=== PATIENT | female | born 1945 | race Caucasian/White ===

== ENCOUNTER 2017-02-10 07:38 | Inpatient (IN) | payer OTHER ==
[2017-02-08 12:28] LABS: BASOPHILS 0.4 %; BASOPHILS ABSOLUTE 0.03 10/3/uL (0.0-0.16); EOSINOPHILS 5.7 %; EOSINOPHILS ABSOLUTE 0.44 10/3/uL (0.0-0.53); HEMATOCRIT 40.4 % (36.0-48.0); HEMOGLOBIN 13.4 g/dL (12.0-16.0); IMMATURE GRANULOCYTES 0.1 %; IMMATURE GRANULOCYTES ABSOLUTE 0.01 10/3/uL (0.0-0.11); LYMPHOCYTES 30.9 %; LYMPHOCYTES ABSOLUTE 2.37 10/3/uL (0.67-4.30); MANUAL DIFF NO %; MEAN CORPUS HGB CONC 33.2 g/dL (32.0-36.0); MEAN CORPUSCULAR HEMOGLOB 28.8 pg (26.0-34.0); MEAN CORPUSCULAR VOLUME 86.7 fL (80-100); MEAN PLATELET VOLUME 10.4 fL (9.2-13.0); MONOCYTES 6.9 %; MONOCYTES ABSOLUTE 0.53 10/3/uL (0.21-1.20); NEUTROPHILS ABSOLUTE 4.28 10/3/uL (2.02-8.40); PLATELET COUNT 196 10/3/uL (150-400); RBC DISTRIBUTION WIDTH 15.2 % (12.0-16.0); RED CELL COUNT 4.66 10/6/uL (4.0-5.6); WHITE BLOOD CELLS 7.7 10/3/uL (4.5-10.5)
[2017-02-08 12:47] LABS: ALBUMIN 3.6 G/DL (3.5-5.0); ALKALINE PHOSPHATASE 94 U/L (45-117); BUN (BLOOD UREA NITROGEN) 18 MG/DL (6-23); CHLORIDE, SERUM 110 MMOL/L (96-112); CO2 (CARBON DIOXIDE) 28 MMOL/L (24-34); GFR AFRICAN AMERICAN 100 ML/MIN (>=60); GFR NON AFRICAN AMERICAN 87 ML/MIN (>=60); GLOBULIN 3.6 G/DL (2.5-4.1); POTASSIUM, SERUM 4.4 MMOL/L (3.5-5.3); SGOT(AST) 25 U/L (5-40); SGPT(ALT) 24 U/L (5-65); SODIUM, SERUM 144 MMOL/L (135-148); TOTAL BILIRUBIN 0.7 MG/DL (0-1.2); TOTAL PROTEIN 7.2 G/DL (6.0-8.5)
[2017-02-08 12:50] LABS: CALCIUM, SERUM 9.9 MG/DL (8.5-10.4); GLUCOSE, SERUM 119 MG/DL (60-99)
--- NOTE | ~2017-02-10 | OP ---
Record Of Operation [facility] [address] [place]. [address] NAME: OBIE NOGUEIRA : 43 STATUS : ADM IN [facility]#: [id number] AGE: 71 ADM/REG DATE : 02/10/17 MR#: [id number] REPORT SERV DATE: 02/11/17 DICTATED BY: RADHA ECRVANTES III DATE: 02/10/17 REPORT STATUS : Draft TRANSCRIBED BY: MODL DATE: 02/10/17 DATE OF PROCEDURE: 02/10/2017 PREOPERATIVE DIAGNOSES: History of sigmoid colon cancer with previous history of emergent sigmoid colectomy and colostomy with Shon's pouch, with postoperative adjuvant chemotherapy, obesity, diabetes mellitus, chronic anterior abdominal wall wound, hypertension, and history of cerebrovascular accident in the past. POSTOPERATIVE DIAGNOSES: History of sigmoid colon cancer with previous history of emergent sigmoid colectomy and colostomy with Shon's pouch, with postoperative adjuvant chemotherapy, obesity, diabetes mellitus, chronic anterior abdominal wall wound, hypertension, and history of cerebrovascular accident in the past. PROCEDURE: Laparotomy, resection of the colostomy stoma with colorectal anastomosis, extensive lysis of adhesions, debridement and excision of chronic anterior abdominal wall wound sinus tract, sigmoidoscopy. SURGEON: Radha Cervantes M.D. ANESTHESIA: General with intubation. COMPLICATIONS: None. ESTIMATED BLOOD LOSS: 50 mL. SPECIMENS: Colostomy stoma consisting of distal portion of left colon. DRAINS: Nithin-Cardenas in abdominal cavity, Mantoloking in subcutaneous tissue. LAP AND SPONGE COUNT: Correct x3. BRIEF HISTORY: This 71-year-old female who is about one year status post emergent sigmoid colectomy with colostomy and Shon's pouch for an obstructing perforated cancer of the sigmoid colon. The patient had a locally advanced cancer at that time. Her surgery was very difficult at that time secondary to invasion of the tumor into the abdominal wall due to severe inflammatory changes from the perforation. The patient had recovered from surgery and had undergone adjuvant chemotherapy. She now wished to have her colostomy closed. She had a chronic draining anterior abdominal wall wound, which she wished to have debrided or resected at the time. The patient is extremely obese with multiple comorbid risk factors and based on the previous surgical history, it was explained to the patient that this would be a difficult procedure with high risk for morbidity and mortality. The patient understands and wished to proceed with surgery. The procedure risks, benefits, and alternatives, including but not limited to, the risk for bleeding, infection, enterotomy, injury to abdominal structure, postop small bowel obstruction, ileus, incisional hernia, dehiscence, anastomotic leak, requiring reoperation with colostomy, ureteral injury, and unforeseen complications including deep venous thrombosis, pulmonary embolus, myocardial Record Of Operation [address] [place]. [address] NAME: OBIE NOGUEIRA : 43 STATUS : ADM IN [facility]#: [id number] AGE: 71 ADM/REG DATE : 02/10/17 MR#: [id number] REPORT SERV DATE: 02/11/17 DICTATED BY: RADHA CERVANTES III DATE: 02/10/17 REPORT STATUS : Draft TRANSCRIBED BY: ROMERO DATE: 02/10/17 infarction, stroke, pneumonia, and , were fully and completely explained to the patient and her family at length on several occasions prior to surgery. Their questions were answered. They understood the risks and agreed to the surgery as planned. DESCRIPTION OF PROCEDURE: After being properly identified and after discussing risks of surgery with the patient and family again in the preoperative area, and after an appropriate bowel preparation at home, the patient was taken to the operating room and placed in the supine position on the operating room table. General anesthesia was administered, and she was intubated without difficulty. A Kunz catheter was inserted. Her legs were placed in stirrups. The abdomen and perineum were prepped and draped sterilely in the usual fashion after a 2-0 silk pursestring was placed around the stoma. After an appropriate "time-out" per JCAHO standards, a midline incision was made from just below the umbilicus towards the pubis. The incision was continued through the subcutaneous tissue. There was extensive scarring in the area. The patient had a chronic sinus tract in the anterior abdominal wall. This sinus tract extended down to the fascia, but it did not involve the fascia and did not penetrate the fascia. This sinus tract consisting of granulation tissue was resected. It should be noted that the patient was extremely obese and abdominal wall was extremely thick. The incision was continued through the fascia. The abdominal cavity was carefully entered. There were extremely dense adhesions between the omentum and multiple loops of small bowel on the underside of the abdominal wall and the pelvis. A considerable amount of time was spent on dividing these adhesions so as to be able to expose the rectal stump. In particular, there was a loop of small bowel which was densely adherent to the pelvis and this was carefully freed. Using sharp dissection, we identified the rectal stump. This was mobilized using sharp dissection. After adequate mobilization, we turned our attention to the colostomy stoma. A circular incision was made around this. Using sharp dissection, the colostomy stoma was excised from the abdominal wall. This was extremely difficult secondary to the thickness of the patient's abdominal wall. The peritoneal flexion to the left colon was divided along the line of Toldt, and the colon mobilized medially. We divided the distal end of the left colon, which had been in the abdominal wall. This was sent for permanent pathology. At this time, a 2-0 Prolene pursestring was placed around and divided the end of the left colon. Sizers were placed into the lumen of the colon, and it was determined that the #27 stapler will be the appropriate size. The anvil was placed into the lumen of the colon, and a pursestring was secured. At this time, a rigid sigmoidoscopy was performed. Air was passed through the sigmoidoscope into the rectal stump, and the rectal stump was noted to be watertight with no evidence for leakage or extravasation. At this time, we attempted to pass the EEA stapler up to the rectal stump. There was an acute angulation of the rectum and after several attempts, we felt we could not safely pass the stapler to perform the anastomosis. Record Of Operation [facility] [address] [facility] [place]. [address] NAME: JUAN RAMON NOGUEIRAYCE Charlie : 43 STATUS : ADM IN [facility]#: [id number] AGE: 71 ADM/REG DATE : 02/10/17 MR#: [id number] REPORT SERV DATE: 02/11/17 DICTATED BY: RADHA CERVANTES III DATE: 02/10/17 REPORT STATUS : Draft TRANSCRIBED BY: MODL DATE: 02/10/17 For this reason, we elected to perform a [id number]-pp-rbup anastomosis. This was performed by aligning the antimesenteric border of the left colon with antimesenteric border proximal to the rectum, using 3-0 silk sutures. A small opening was then made in the antimesenteric border of the proximal colon and the rectum. A OLY stapler was placed through this and fired. The defect created by the stapler was then closed in two layers, using a running 3-0 chromic suture on the inner layer, and interrupted 3-0 silk sutures on the outer anterior layer. Upon completion of this, the anastomosis was widely patent to palpation. It was not twisted or kinked in anyway and was not under any tension. Sigmoidoscopy was again performed, and air was passed through the anastomosis with saline in the pelvis. Air was noted to pass easily through the anastomosis with no evidence for leakage or extravasation of air bubbles. Hemostasis was assured. The anastomosis again was patent to palpation and not twisted or kinked in any way and not under any tension. Hemostasis was assured in all areas. A Nithin-Cardenas drain was brought through a separate stab wound to the right incision and placed in the pelvis. The fascia of both incision was closed with a running looped #1 PDS suture. This subcutaneous tissue was closed with a running 3-0 chromic suture over a Petra drain which was brought out through the inferior aspect of the incision and the lateral aspect of the lateral incision. The skin was closed with skin tigre. Dressings were applied, anesthesia was reversed, and the patient was taken to the recovery room in stable condition. She tolerated the procedure well. Her family was informed of results of surgery. The patient will remain in the hospital for postoperative care. This procedure was extremely difficult secondary to the patient's large size and dense adhesions. This extended the length of procedure by 100%, and for this reason, modifier 22 was added to the procedure code. RHJ/MODL Radha Cervantes III, M.D. / [id number]
--- NOTE | ~2017-02-10 | DS ---
Discharge Summary [facility] [address] [facility] [place]. [address] NAME: OBIE NOGUEIRA : 43 STATUS : DIS IN PAT#: [id number] AGE: 71 ADM/REG DATE : 02/10/17 MR#: [id number] REPORT SERV DATE: 02/28/17 DICTATED BY: RADHA CERVANTES III DATE: 02/25/17 REPORT STATUS : Draft TRANSCRIBED BY: ROMERO DATE: 02/25/17 Data Collection from hospitalization DISCHARGE DIAGNOSES: 1. History of sigmoid colon cancer with previous history of emergent sigmoid colectomy and colostomy with Srivastava's pouch and postoperative adjuvant chemotherapy, status post laparotomy; resection of the colostomy stoma with colorectal anastomosis; extensive lysis of adhesions; debridement and excision of chronic anterior abdominal wall wound sinus tract and sigmoidoscopy. 2. Diabetes mellitus. 3. Hypertension. 4. Obesity. 5. History of cerebrovascular accident. 6. Arthritis. 7. History of thyroid disease. CONSULTATIONS: None. PROCEDURES PERFORMED: Laparotomy resection of the colostomy stoma with colorectal anastomosis, extensive lysis of adhesions, debridement and excision of chronic anterior abdominal wall wound sinus tract, sigmoidoscopy on 02/10/2017. PATHOLOGY: Colonic cutaneous junction stoma - benign mucosa with focal superficial erosion, [id number] mixed inflammation at the junction, proximal mucosa within normal limits. No mucinous adenocarcinoma. MEDICATIONS: Zyloprim 100 mg every morning, Norvasc 5 mg every morning, aspirin 81 mg every morning, vitamin D 1000 units daily, Colace 100 mg daily, Toujeo 63 units subcutaneously every morning, Synthroid 75 mcg every morning, Prinivil 40 mg every morning, Fortamet 500 mg twice a day, Lopressor 50 mg twice a day, Percocet 7.5/325 one tablet three times a day as needed, iron 72 mg daily, and Pro-Stat one ounce daily. CONDITION AT DISCHARGE: Stable. DISPOSITION: The patient was discharged home to be followed by home health care on an 1800- calorie diabetic soft diet with activities as instructed. She would follow up with me two weeks following discharge. HOSPITAL COURSE: This is a 71-year-old female who was about one year status post emergent sigmoid colectomy with colostomy and Shon's pouch for an obstructing perforated cancer of the sigmoid colon. The patient had a locally advanced cancer at that time. Her surgery was very difficult at that time secondary to invasion of the tumor into the abdominal wall due to severe inflammatory changes from the perforation. She has recovered from surgery and had undergone adjuvant chemotherapy. She now wanted to have her colostomy closed. She had chronic draining anterior abdominal wall wound, which she wished to have debrided or resected at that time. She is extremely obese with multiple comorbid risk factors and based on the previous surgical history, it was explained to the patient that this would be a difficult procedure with a high risk for morbidity and mortality. She understood and wanted Discharge Summary [facility] [address] [place]. [address] NAME: OBIE NOGUEIRA : 43 STATUS : DIS IN PAT#: [id number] AGE: 71 ADM/REG DATE : 02/10/17 MR#: [id number] REPORT SERV DATE: 02/28/17 DICTATED BY: RADHA CERVANTES III DATE: 02/25/17 REPORT STATUS : Draft TRANSCRIBED BY: ROMERO DATE: 02/25/17 to proceed with surgery. Treatment options were discussed and it was elected to proceed with surgical intervention. She was admitted to the hospital at this time for further evaluation and treatment. Upon admission, she was taken to the operating room where she underwent the above-mentioned procedure. She tolerated this well, and there were no complications. On postop day #1, she had no new complaints except for being thirsty. Her abdomen was soft. Clear liquids were started. It was felt that she was likely to have a prolonged ileus with slow recovery. She was evaluated by Physical Therapy. On 02/12/2017, she had no new complaints. She was alert and comfortable. She was progressing well. Clear liquids were continued. Over the next couple of days, she continued to progress. She was beginning to tolerate full liquids. She was passing some gas per rectum. Discharge planning was performed. The SENIOR SUPPORT ANALYST was discontinued. On 02/16/2017, the patient felt better and wanted to go home. She was eating and ambulating well. She was passing stool and gas. Discharge instructions were given. Due to her improved and stable condition, she was discharged home to be followed by home health care with the above-stated instructions. Information collected by: Sarah Toledo I submit the above information as my discharge summary. JAMAAL/ROMERO Radha Cervantes III, M.D. / [id number] CC: Ileana Marlow III, MD
--- NOTE | ~2017-02-10 | PREOPHP ---
PreOp History and Physical [facility] [id number] [place]. [address] NAME: OBIE NOGUEIRA : 43 STATUS : PRE IN PAT#: [id number] AGE: 71 ADM/REG DATE : MR#: [id number] REPORT SERV DATE: 02/10/17 DICTATED BY: RADHA CERVANTES III DATE: 02/01/17 REPORT STATUS : Draft TRANSCRIBED BY: MODL DATE: 02/01/17 HISTORY OF PRESENT ILLNESS: This is a 71-year-old female, who comes to the operating room for resection and closure of her colostomy and wound debridement. The patient has a history of colon cancer. She is status post emergent surgery performed on 12/26/2015 for an obstructing cancer of the sigmoid colon. At that time, she had a large sigmoid colon cancer with invasion into the abdominal wall. She underwent colectomy with colostomy and Shon's pouch. The patient has completed chemotherapy and is considered to be in remission regarding her disease. She comes now for elective closure of her colostomy. The patient has a chronic anterior abdominal wall wound. This wound will be debrided and possibly closed at the time of surgery. Alternatively, wound VAC may be placed. PAST MEDICAL HISTORY: 1. History of T3 N1b poorly differentiated mucinous adenocarcinoma, associated with obstruction and 3/13 positive lymph nodes, status post sigmoid colectomy with colostomy performed approximately one year ago as above. 2. Arthritis. 3. Diabetes mellitus. 4. Hypertension. 5. Cerebrovascular accident in the past. 6. Obesity. 7. History of thyroid disease. 8. History of chronic anterior abdominal wall wound for which the patient has been receiving wound care in the [facility]. SOCIAL HISTORY: The patient is and retired. She has no history of tobacco use. She has no history of alcohol use. REVIEW OF SYSTEMS: The patient has a history of previous intracranial hemorrhage. The patient has a history of fibromyalgia. PAST SURGICAL HISTORY: Includes cholecystectomy, appendectomy, and colon surgery as above. MEDICATIONS: Allopurinol, amlodipine, aspirin, calcium, levothyroxine, lisinopril, insulin, fludrocortisone, cholecalciferol, omeprazole, metoprolol, lactulose. PHYSICAL EXAMINATION: GENERAL: Reveals a very obese elderly female, in no acute distress. She is alert and oriented x3. HEENT: Unremarkable. Cranial nerves II through XII were normal. LUNGS: Clear. CARDIAC: Normal. ABDOMEN: Soft, nontender. The patient has a colostomy in the left lower quadrant. She has a chronic wound in the anterior abdominal wall, which extends in the midline, down to the fascia level. EXTREMITIES: Normal. PreOp History and Physical [facility] [address] [place]. [address] NAME: OBIE NOGUEIRA : 43 STATUS : PRE IN PAT#: [id number] AGE: 71 ADM/REG DATE : MR#: [id number] REPORT SERV DATE: 02/10/17 DICTATED BY: RADHA CERVANTES III DATE: 02/01/17 REPORT STATUS : Draft TRANSCRIBED BY: ROMERO DATE: 02/01/17 ASSESSMENT: A 71-year-old female with: 1. History of previous sigmoid colon cancer, status post emergent sigmoid colectomy with colostomy and Shon's pouch performed on 01/15/2016 emergently for an obstructing cancer of the colon. The patient is considered to be in remission regarding her cancer at this time. This cancer appeared to involve the pelvic sidewall and was a stage IIIB cancer. 2. Obesity. 3. Insulin-dependent diabetes mellitus. 4. Hypothyroidism. 5. History of cerebrovascular accident in the past. 6. Hypertension. 7. Osteoarthritis. 8. Fibromyalgia. PLAN: The patient comes to the operating room now for resection and closure of her colostomy with debridement of the anterior abdominal wall wound and possible closure versus wound VAC placement. The fact that this is a major operation with risk for major morbidity and mortality has been explained. The expected length of recovery has been explained. The procedure risks, benefits, and alternatives, including but not limited to the risk for bleeding, infection, enterotomy, injury to any abdominal structure, postop small bowel obstruction, ileus, incisional hernia, dehiscence, anastomotic leak, requiring reoperation with replacement of the colostomy, possible need for temporary ileostomy if we concerned about the anastomosis, recurrence of the wound, possible need for chronic wound care, ureteral injury, and unforeseen complications including deep venous thrombosis, pulmonary embolus, myocardial infarction, stroke, pneumonia, and , have been fully and completely explained to the patient and her family at length prior to surgery. The fact that this is a major operation with risk for major morbidity and mortality has been explained. Expected length of recovery has been explained. The option of nonoperative management has been offered to the patient, but declined. The patient's questions have been answered. She clearly understands the risks and agrees to the surgery as planned. RAMIRO/ROMERO Radha Cervantes III, M.D. / [id number]
[~2017-02-10 07:38] MED LIST: ASAB PO; CIP5 PO; CYMBALTA30 PO; DIABET2.5 PO; DSS PO; FIBERCON PO; FLAG500TAB PO; FLORASTOR250 MG PO; FORTAMET500 MG PO; HUMALOGMIX SC; HUMAMIXPEN SC; IRON PO; LEVOTHYROXIN75 MCG PO; LISINOPRIL40 MG PO; LOP50 PO; METAMUCIL PO; MICONAZOLE2 % V; NORV5 PO; PCET PO; PRILOSEC OTC20 MG PO; PRIN20 PO; PRO-STAT PO; SYN075 PO; TOPXL50 PO; TOUJEO SC; VITAMIN D1000 UNI1 PO; VITAMIN D400 UNI1 PO; Z100 PO; ZYRTEC ALLGY10 MG PO
[2017-02-10 08:51] LABS: INTERNATIONAL NORMAL RATI 1.3 UNITS (-); PARTIAL THROMBO TIME 30.5 SEC (22.5-37.2); PROTIME (NOT ORD) 15.6 SEC (12.0-14.5)
[2017-02-11 07:23] LABS: HEMATOCRIT 37.8 % (36.0-48.0); HEMOGLOBIN 12.9 g/dL (12.0-16.0); MEAN CORPUS HGB CONC 34.1 g/dL (32.0-36.0); MEAN CORPUSCULAR HEMOGLOB 29.2 pg (26.0-34.0); MEAN CORPUSCULAR VOLUME 85.5 fL (80-100); MEAN PLATELET VOLUME 10.2 fL (9.2-13.0); PLATELET COUNT 198 10/3/uL (150-400); RBC DISTRIBUTION WIDTH 15.6 % (12.0-16.0); RED CELL COUNT 4.42 10/6/uL (4.0-5.6)
[2017-02-11 07:26] LABS: MANUAL DIFF YES %; WHITE BLOOD CELLS 14.9 10/3/uL (4.5-10.5)
[2017-02-11 07:27] LABS: CHLORIDE, SERUM 111 MMOL/L (96-112); POTASSIUM, SERUM 4.2 MMOL/L (3.5-5.3); SODIUM, SERUM 141 MMOL/L (135-148)
[2017-02-11 07:29] LABS: BUN (BLOOD UREA NITROGEN) 12 MG/DL (6-23); CALCIUM, SERUM 8.6 MG/DL (8.5-10.4); CO2 (CARBON DIOXIDE) 24 MMOL/L (24-34)
[2017-02-11 07:32] LABS: GFR AFRICAN AMERICAN 85 ML/MIN (>=60); GFR NON AFRICAN AMERICAN 74 ML/MIN (>=60); GLUCOSE, SERUM 122 MG/DL (60-99)
[2017-02-11 07:44] LABS: BAND NEUTROPHILS 1 %; LYMPHOCYTES 10 %; LYMPHOCYTES ABSOLUTE (CALC) 1.49 10/3/uL (0.67-4.30); MONOCYTES 6 %; MONOCYTES ABSOLUTE (CALC) 0.89 10/3/uL (0.21-1.20); NEUTROPHILS ABSOLUTE (CALC) 12.52 10/3/uL (2.02-8.40); PLATELET ESTIMATE ADQ (ADEQUATE); RBC MORPHOLOGY NORM (NORMAL); SEGMENTED NEUTROPHIL (0) 83 %; TOTAL NUCLEATED CELLS 100
[2017-02-12 05:31] LABS: BASOPHILS 0.5 %; BASOPHILS ABSOLUTE 0.07 10/3/uL (0.0-0.16); EOSINOPHILS ABSOLUTE 0.64 10/3/uL (0.0-0.53); HEMATOCRIT 36.4 % (36.0-48.0); HEMOGLOBIN 11.8 g/dL (12.0-16.0); IMMATURE GRANULOCYTES 0.4 %; IMMATURE GRANULOCYTES ABSOLUTE 0.05 10/3/uL (0.0-0.11); LYMPHOCYTES 19.9 %; LYMPHOCYTES ABSOLUTE 2.54 10/3/uL (0.67-4.30); MEAN CORPUS HGB CONC 32.4 g/dL (32.0-36.0); MEAN CORPUSCULAR HEMOGLOB 28.3 pg (26.0-34.0); MEAN CORPUSCULAR VOLUME 87.3 fL (80-100); MEAN PLATELET VOLUME 10.7 fL (9.2-13.0); MONOCYTES 10.3 %; MONOCYTES ABSOLUTE 1.32 10/3/uL (0.21-1.20); NEUTROPHILS 63.9 %; NEUTROPHILS ABSOLUTE 8.14 10/3/uL (2.02-8.40); PLATELET COUNT 163 10/3/uL (150-400); RBC DISTRIBUTION WIDTH 15.6 % (12.0-16.0); RED CELL COUNT 4.17 10/6/uL (4.0-5.6); WHITE BLOOD CELLS 12.8 10/3/uL (4.5-10.5)
[2017-02-12 05:32] LABS: MANUAL DIFF NO %
[2017-02-12 05:40] LABS: BUN (BLOOD UREA NITROGEN) 9 MG/DL (6-23); CALCIUM, SERUM 8.3 MG/DL (8.5-10.4); CHLORIDE, SERUM 110 MMOL/L (96-112); CO2 (CARBON DIOXIDE) 24 MMOL/L (24-34); CREATININE 0.71 MG/DL (0.55-1.02); GFR AFRICAN AMERICAN 99 ML/MIN (>=60); GFR NON AFRICAN AMERICAN 85 ML/MIN (>=60); GLUCOSE, SERUM 121 MG/DL (60-99); SODIUM, SERUM 140 MMOL/L (135-148)
[2017-02-12 05:42] LABS: POTASSIUM, SERUM 4.7 MMOL/L (3.5-5.3)
[2017-02-13 05:08] LABS: BASOPHILS 0.3 %; BASOPHILS ABSOLUTE 0.03 10/3/uL (0.0-0.16); EOSINOPHILS 8.2 %; EOSINOPHILS ABSOLUTE 0.74 10/3/uL (0.0-0.53); HEMATOCRIT 36.2 % (36.0-48.0); IMMATURE GRANULOCYTES 0.2 %; IMMATURE GRANULOCYTES ABSOLUTE 0.02 10/3/uL (0.0-0.11); LYMPHOCYTES 23.7 %; LYMPHOCYTES ABSOLUTE 2.15 10/3/uL (0.67-4.30); MEAN CORPUS HGB CONC 33.1 g/dL (32.0-36.0); MEAN CORPUSCULAR HEMOGLOB 28.6 pg (26.0-34.0); MEAN CORPUSCULAR VOLUME 86.2 fL (80-100); MEAN PLATELET VOLUME 10.3 fL (9.2-13.0); MONOCYTES 8.8 %; NEUTROPHILS 58.8 %; NEUTROPHILS ABSOLUTE 5.33 10/3/uL (2.02-8.40); PLATELET COUNT 153 10/3/uL (150-400); RBC DISTRIBUTION WIDTH 15.8 % (12.0-16.0); WHITE BLOOD CELLS 9.1 10/3/uL (4.5-10.5)
[2017-02-13 05:10] LABS: MANUAL DIFF NO %
[2017-02-13 05:16] LABS: BUN (BLOOD UREA NITROGEN) 6 MG/DL (6-23); CALCIUM, SERUM 8.8 MG/DL (8.5-10.4); CHLORIDE, SERUM 110 MMOL/L (96-112); CO2 (CARBON DIOXIDE) 26 MMOL/L (24-34); CREATININE 0.63 MG/DL (0.55-1.02); GFR AFRICAN AMERICAN 104 ML/MIN (>=60); GFR NON AFRICAN AMERICAN 90 ML/MIN (>=60); SODIUM, SERUM 141 MMOL/L (135-148)
[2017-02-13 05:17] LABS: GLUCOSE, SERUM 165 MG/DL (60-99)
[2017-02-14 07:19] LABS: BASOPHILS 0.3 %; BASOPHILS ABSOLUTE 0.02 10/3/uL (0.0-0.16); EOSINOPHILS 9.4 %; EOSINOPHILS ABSOLUTE 0.58 10/3/uL (0.0-0.53); HEMATOCRIT 35.3 % (36.0-48.0); HEMOGLOBIN 11.7 g/dL (12.0-16.0); IMMATURE GRANULOCYTES 0.2 %; IMMATURE GRANULOCYTES ABSOLUTE 0.01 10/3/uL (0.0-0.11); LYMPHOCYTES 23.7 %; LYMPHOCYTES ABSOLUTE 1.47 10/3/uL (0.67-4.30); MEAN CORPUS HGB CONC 33.1 g/dL (32.0-36.0); MEAN CORPUSCULAR HEMOGLOB 28.6 pg (26.0-34.0); MEAN CORPUSCULAR VOLUME 86.3 fL (80-100); MEAN PLATELET VOLUME 9.7 fL (9.2-13.0); MONOCYTES 8.4 %; MONOCYTES ABSOLUTE 0.52 10/3/uL (0.21-1.20); PLATELET COUNT 137 10/3/uL (150-400); RBC DISTRIBUTION WIDTH 15.4 % (12.0-16.0); RED CELL COUNT 4.09 10/6/uL (4.0-5.6); WHITE BLOOD CELLS 6.2 10/3/uL (4.5-10.5)
[2017-02-14 07:20] LABS: MANUAL DIFF NO %
[2017-02-14 07:31] LABS: BUN (BLOOD UREA NITROGEN) 5 MG/DL (6-23); CALCIUM, SERUM 8.6 MG/DL (8.5-10.4); CHLORIDE, SERUM 111 MMOL/L (96-112); CO2 (CARBON DIOXIDE) 27 MMOL/L (24-34); CREATININE 0.64 MG/DL (0.55-1.02); GFR AFRICAN AMERICAN 103 ML/MIN (>=60); GFR NON AFRICAN AMERICAN 89 ML/MIN (>=60); GLUCOSE, SERUM 205 MG/DL (60-99); POTASSIUM, SERUM 4.1 MMOL/L (3.5-5.3); SODIUM, SERUM 143 MMOL/L (135-148)
[2017-02-15 06:42] LABS: BASOPHILS 0.5 %; BASOPHILS ABSOLUTE 0.03 10/3/uL (0.0-0.16); BUN (BLOOD UREA NITROGEN) 5 MG/DL (6-23); CALCIUM, SERUM 8.7 MG/DL (8.5-10.4); CHLORIDE, SERUM 109 MMOL/L (96-112); CO2 (CARBON DIOXIDE) 27 MMOL/L (24-34); CREATININE 0.62 MG/DL (0.55-1.02); EOSINOPHILS 8.8 %; EOSINOPHILS ABSOLUTE 0.58 10/3/uL (0.0-0.53); GFR AFRICAN AMERICAN 104 ML/MIN (>=60); GFR NON AFRICAN AMERICAN 90 ML/MIN (>=60); HEMATOCRIT 34.9 % (36.0-48.0); HEMOGLOBIN 11.4 g/dL (12.0-16.0); IMMATURE GRANULOCYTES 0.2 %; IMMATURE GRANULOCYTES ABSOLUTE 0.01 10/3/uL (0.0-0.11); LYMPHOCYTES 28.1 %; LYMPHOCYTES ABSOLUTE 1.85 10/3/uL (0.67-4.30); MANUAL DIFF NO %; MEAN CORPUS HGB CONC 32.7 g/dL (32.0-36.0); MEAN CORPUSCULAR HEMOGLOB 28.4 pg (26.0-34.0); MEAN CORPUSCULAR VOLUME 86.8 fL (80-100); MEAN PLATELET VOLUME 9.9 fL (9.2-13.0); MONOCYTES ABSOLUTE 0.59 10/3/uL (0.21-1.20); NEUTROPHILS 53.4 %; NEUTROPHILS ABSOLUTE 3.53 10/3/uL (2.02-8.40); PLATELET COUNT 162 10/3/uL (150-400); POTASSIUM, SERUM 4.1 MMOL/L (3.5-5.3); RBC DISTRIBUTION WIDTH 15.5 % (12.0-16.0); RED CELL COUNT 4.02 10/6/uL (4.0-5.6); SODIUM, SERUM 143 MMOL/L (135-148); WHITE BLOOD CELLS 6.6 10/3/uL (4.5-10.5)
[2017-02-15 06:43] LABS: GLUCOSE, SERUM 155 MG/DL (60-99)
[2017-02-16 06:26] LABS: BASOPHILS 0.3 %; BASOPHILS ABSOLUTE 0.02 10/3/uL (0.0-0.16); EOSINOPHILS 7.7 %; EOSINOPHILS ABSOLUTE 0.49 10/3/uL (0.0-0.53); HEMATOCRIT 33.5 % (36.0-48.0); IMMATURE GRANULOCYTES 0.2 %; IMMATURE GRANULOCYTES ABSOLUTE 0.01 10/3/uL (0.0-0.11); LYMPHOCYTES 23.8 %; LYMPHOCYTES ABSOLUTE 1.51 10/3/uL (0.67-4.30); MANUAL DIFF NO %; MEAN CORPUS HGB CONC 32.8 g/dL (32.0-36.0); MEAN CORPUSCULAR HEMOGLOB 28.4 pg (26.0-34.0); MEAN CORPUSCULAR VOLUME 86.6 fL (80-100); MEAN PLATELET VOLUME 9.6 fL (9.2-13.0); MONOCYTES 10.4 %; MONOCYTES ABSOLUTE 0.66 10/3/uL (0.21-1.20); NEUTROPHILS 57.6 %; NEUTROPHILS ABSOLUTE 3.65 10/3/uL (2.02-8.40); PLATELET COUNT 160 10/3/uL (150-400); RBC DISTRIBUTION WIDTH 15.7 % (12.0-16.0); RED CELL COUNT 3.87 10/6/uL (4.0-5.6); WHITE BLOOD CELLS 6.3 10/3/uL (4.5-10.5)
[2017-02-16 06:42] LABS: BUN (BLOOD UREA NITROGEN) 9 MG/DL (6-23); CALCIUM, SERUM 8.9 MG/DL (8.5-10.4); CHLORIDE, SERUM 107 MMOL/L (96-112); CO2 (CARBON DIOXIDE) 27 MMOL/L (24-34); CREATININE 0.68 MG/DL (0.55-1.02); GFR AFRICAN AMERICAN 101 ML/MIN (>=60); GFR NON AFRICAN AMERICAN 87 ML/MIN (>=60); GLUCOSE, SERUM 178 MG/DL (60-99); POTASSIUM, SERUM 4.1 MMOL/L (3.5-5.3); SODIUM, SERUM 141 MMOL/L (135-148)
[2017-02-16] MEDS ORDERED: PERCOCET 7.5/321 TAB PO (08:24)
== END 2017-02-16 11:17 | disposition home health service (06) | DRG 330 ==
LOC: SDC/OF 07:38 → PACU 13:10 → 5SO 14:54
PROVIDERS: Surgery
PROC: 0DN80ZZ Release Small Intestine, Open Approach (ICD-10-PCS; 2017-02-10)
PROC: 0DBN0ZZ Excision of Sigmoid Colon, Open Approach (ICD-10-PCS; principal; 2017-02-10 10:00)
DX: Z43.3 Encounter for attention to colostomy (principal); N32.2 Vesical fistula, not elsewhere classified; E11.9 Type 2 diabetes mellitus without complications; E66.9 Obesity, unspecified; I10 Essential (primary) hypertension; K66.0 Peritoneal adhesions (postprocedural) (postinfection); M79.7 Fibromyalgia; M19.90 Unspecified osteoarthritis, unspecified site; E03.9 Hypothyroidism, unspecified; Z68.37 Body mass index [BMI] 37.0-37.9, adult; Z92.21 Personal history of antineoplastic chemotherapy; Z85.038 Personal history of other malignant neoplasm of large intestine; Z86.73 Personal history of transient ischemic attack (TIA), and cerebral infarction without residual deficits; Z79.4 Long term (current) use of insulin; Z79.82 Long term (current) use of aspirin
CPT/HCPCS: 36415; 71020; 80048; 80053; 82962; 85025; 85610; 85730; 86850; 86900; 86901; 88304; 93005; 97110-GP; 97116-GP; 97161-GP; A9270-GY; C9113; J0690; J1170; J2250; J2270; J2405; J2710; J3010